=== PATIENT | female | born 1955 | race Caucasian/White ===

== ENCOUNTER 2021-07-12 08:00 | Outpatient (CLI) | payer SELFPAY | END 2021-07-12 23:59 | LOC: LAB.N 08:00 | PROVIDERS: ATTEND Physician Assistant | DX: Z53.9 Procedure and treatment not carried out, unspecified reason (principal) ==

== ENCOUNTER 2022-07-30 15:42 | Emergency (ER) | payer MEDICARE, OTHER ==
[2022-07-30] MEDS ORDERED: IPRATROPIUM/ALBUTEROL 3 ML NEB INH STA (16:03)
--- NOTE | 2022-07-30 16:04 | ED Physician Documentation ---
History of Present Illness - Stated complaint Stated Complaint: WHEEZING - Chief complaint Chief Complaint: Resp - History obtained from History obtained from: Patient - Additonal information Additional information: 67-year-old woman with history of asthma has had a rough winter with regard to her asthma. Several flares. She had her knee replaced 2 weeks ago and over the last week or so has had increased wheezing with a cough productive of green sputum. She is short of breath. She denies fevers or chills. She went to the walk-in clinic and given the temporal proximity to her knee replacements there was a concern for pulmonary embolism and she was sent here for further evaluation and treatment for that. She is been using a albuterol neb at home, not DuoNeb, and is currently on a steroid taper. PD PAST MEDICAL HISTORY - Present Medications Home Medications: Ambulatory Orders Medication Instructions Recorded Confirmed Amoxicillin 2 tab PO TID #30 cap 07/30/22 Citalopram Hydrobromide 40 mg PO DAILY 07/30/22 07/30/22 [Citalopram HBr] Gabapentin [Neurontin] 300 mg PO DAILY 07/30/22 07/30/22 Ipratropium/Albuterol [Duoneb] 3 ml INH Q6H PRN #30 ea 07/30/22 Losartan Potassium [Cozaar] 50 mg PO DAILY 07/30/22 07/30/22 Simvastatin [Zocor] 40 mg PO DAILY 07/30/22 07/30/22 Trazodone HCl 50 mg PO DAILY 07/30/22 07/30/22 Triamterene/Hydrochlorothiazid 1 cap PO DAILY 07/30/22 07/30/22 [Triamterene-Hctz 37.5-25 mg Cp] - Allergies Allergies/Adverse Reactions: Allergies Allergy/AdvReac Type Severity Reaction Status Date / Time No Known Drug Allergies Allergy Verified 07/30/22 15:46 PD ED PE NORMAL - Vitals Vital signs reviewed: Yes - General General: Alert and oriented X 3, No acute distress - HEENT HEENT: PERRL, EOMI - Neck Neck: Supple, no meningeal sign, No bony TTP - Cardiac Cardiac: RRR, No murmur - Respiratory Respiratory: No respiratory distress, Other (Wheezy throughout but good air movement with rhonchi both bases) - Abdomen Abdomen: Non tender - Back Back: No CVA TTP, No spinal TTP - Derm Derm: Normal color, Warm and dry - Extremities Extremities: Other (Right knee incision anteriorly is clean dry and intact without significant swelling or tenderness of the calves) - Neuro Neuro: Alert and oriented X 3, Normal speech Results - Vitals Vitals: Vital Signs - 24 hr 07/30/22 07/30/22 07/30/22 15:46 16:21 16:22 Temperature 36.5 C Heart Rate 54 L 48 L Respiratory 16 16 16 Rate Blood Pressure 160/70 H 186/70 H O2 Saturation 97 97 07/30/22 16:55 Temperature Heart Rate Respiratory 16 Rate Blood Pressure O2 Saturation Oxygen O2 Source Room air - Labs Labs: Laboratory Tests 07/30/22 07/30/22 07/30/22 16:15 16:15 16:15 WBC 13.0 H RBC 4.36 Hgb 11.9 L Hct 38.2 MCV 87.6 MCH 27.3 MCHC 31.2 L RDW 12.7 Plt Count 387 MPV 9.4 Neut # (Auto) 11.3 H Lymph # (Auto) 0.9 L [place] # (Auto) 0.6 Eos # (Auto) 0.0 Baso # (Auto) 0.0 Absolute Nucleated RBC 0.00 Nucleated RBC % 0.0 D-Dimer 747.8 H Sodium 131 L Potassium 4.7 Chloride 94 L Carbon Dioxide 27 Anion Gap 10.0 BUN 44 H Creatinine 1.2 H Estimated GFR (MDRD) 45 L Glucose 399 H Calcium 9.6 - Rads (name of study) CT angio chest, bilateral atelectasis or infiltrate, cholelithiasis, no PE Radiology: Final report received, EMP read indepedently PD Medical Decision Making - ED course ED course: 67-year-old woman presents with shortness of breath in the setting of an asthma exacerbation. Sent here to rule out PE given temporal proximity to a knee replacement. After discussion we decided to do a D-dimer knowing that there was a high chance of it being false positive given her recent surgery. It was positive and subsequently had a CT showing bilateral bibasilar atelectasis or infiltrate without PE. CBC notable for mild leukocytosis, CMP showing mild hyponatremia and decreased renal function. Also hyperglycemia presume related to her steroid use. Feeling better after a DuoNeb here and the respiratory therapist also recommended an Acapella which was administered. Departure - Departure Disposition: Home, Self Care Clinical Impression: Asthma exacerbation Condition: Good Record reviewed to determine appropriate education?: Yes Instructions: Asthma Dc, Pneumonia Dc Prescriptions: Amoxicillin 2 tab PO TID #30 cap Ipratropium/Albuterol [Duoneb] 3 ml INH Q6H PRN #30 ea PRN Reason: Dyspnea Comments: CT scan not showing any blood clots but did show bilateral "atelectasis or pneumonia. I am adding DuoNeb and antibiotic to your current regimen continue the prednisone you are on. Follow-up with your doctor Thursday or Thursday for recheck. Return for new or worsening symptoms. Discharge Date/Time: 07/30/22 17:37
[2022-07-30 16:19] LABS: BASOPHILS % (AUTO) 0.2 %; EOSINOPHILS % (AUTO) 0.2 %; HCT - HEMATOCRIT 38.2 % (37.0-47.0); HGB - HEMOGLOBIN 11.9 g/dL (12.0-16.0); LYMPHOCYTES # (AUTO) 0.9 10^3/uL (1.5-3.5); LYMPHOCYTES % (AUTO) 7.1 %; MEAN CORPUSCULAR HEMOGLOBIN 27.3 pg (27.0-31.0); MEAN CORPUSCULAR HGB CONC 31.2 g/dL (32.0-36.0); MEAN CORPUSCULAR VOLUME 87.6 fL (81.0-99.0); MEAN PLATELET VOLUME 9.4 fL (7.9-10.8); MONOCYTES # (AUTO) 0.6 10^3/uL (0.0-1.0); MONOCYTES % (AUTO) 4.3 %; NEUTROPHILS # (AUTO) 11.3 10^3/uL (1.5-6.6); NEUTROPHILS % (AUTO) 86.2 %; PLT - PLATELET COUNT 387 10^3/uL (130-450); RED BLOOD COUNT 4.36 10^6/uL (4.20-5.40); RED CELL DISTRIBUTION WIDTH 12.7 % (12.0-15.0)
[2022-07-30 16:28] VITALS: BP 186/70
--- OUTSIDE RECORDS SUMMARY | 2022-07-30 16:28 | EXTERNAL MEDICAL SUMMARY RPT | Continuity of Care Document ---
:1955 Author Organization [facility] Address [address] [place] [address] Phone Care Team Providers Name Role Phone Unavailable Unavailable Unavailable Karina Senior Enterprise Architect Enp, Jyotsna Unavailable Unavailable Allergies No information. Encounters No information. Functional Status No information. Immunizations No information. Medications date description facility 2022-07-30 00:00 triamterene-hydrochlorothiazid All 2022-07-30 00:00 simvastatin All 2022-07-30 00:00 triamterene-hydrochlorothiazid All 2022-07-30 00:00 citalopram All 2022-07-30 00:00 simvastatin All 2022-07-30 00:00 gabapentin All 2022-07-30 00:00 triamterene-hydrochlorothiazid All 2022-07-30 00:00 losartan All 2022-07-30 00:00 triamterene-hydrochlorothiazid All 2022-07-30 00:00 simvastatin All 2022-07-30 00:00 losartan All 2022-07-30 00:00 albuterol sulfate All 2022-07-30 00:00 albuterol sulfate All 2022-07-30 00:00 gabapentin All 2022-07-30 00:00 citalopram All 2022-07-30 00:00 citalopram All 2022-07-30 00:00 citalopram All 2022-07-30 00:00 gabapentin All 2022-07-30 00:00 simvastatin All 2022-07-30 00:00 albuterol sulfate All 2022-07-30 00:00 losartan All 2022-07-30 00:00 gabapentin All 2022-07-30 00:00 albuterol sulfate All 2022-07-30 00:00 losartan All Problems date description facility 2022-07-30 00:00 Hypertensive disorder All 2022-07-30 00:00 Unspecified essential hypertension All 2022-07-30 00:00 Essential (primary) hypertension All 2022-07-30 00:00 Wheezing All Procedures date description facility 2022-07-30 00:00 Visit Code Hold All Results/Labs No information. Social History No information. Vital Signs date measurement value units 2022-07-30 00:00 BMI 34.58 kg/m2 2022-07-30 00:00 BP_diastolic 85 mmHg 2022-07-30 00:00 BP_systolic 191 mmHg 2022-07-30 00:00 heart_rate 68 /min 2022-07-30 00:00 height_metric 170.18 cm 2022-07-30 00:00 height_standard 67 in 2022-07-30 00:00 respiration_rate 18 /min 2022-07-30 00:00 temperature_metric 36.78 C 2022-07-30 00:00 temperature_standard 98.2 F 2022-07-30 00:00 weight_metric 99.79 kg 2022-07-30 00:00 weight_standard 220 lb
[2022-07-30 16:30] LABS: CALCIUM 9.6 mg/dL (8.5-10.3); CREATININE 1.2 mg/dL (0.4-1.0); POTASSIUM 4.7 mmol/L (3.5-5.0)
[2022-07-30] MEDS ORDERED: iohexoL-300 100 ML VIAL ONE (16:36)
--- NOTE | 2022-07-30 17:19 | CT Report ---
PROCEDURE: CT angiogram chest with contrast INDICATIONS: Dyspnea, high D-dimer, PE protocol CONTRAST: 80mL Omni 300 TECHNIQUE: After the administration of intravenous contrast, 2 mm axial images were acquired from the pulmonary apices to the posterior costophrenic angles during the arterial phase. In addition, 1 mm lung kernel and 5 mm soft tissue kernel reconstructions were performed. coronal oblique maximum intensity project ion (MIP) reformats, 8 mm axial MIP, and 5 mm coronal and sagittal MPR reformats were then performed through the thorax. For radiation dose reduction, the following was used: automated exposure control, adjustment of mA and/or kV according to patient size. COMPARISON: None FINDINGS: Image quality: Excellent. Pulmonary arteries: Pulmonary arteries are normal in size, and demonstrate no intraluminal filling d efects to suggest central pulmonary embolism. Lungs and pleura: Mild bibasilar atelectasis and or infiltrate present with chronic interstitial ashton ges. No pleural effusions or pneumothorax. Central and peripheral airways are patent. Mediastinum: Heart size is normal, without pericardial effusion. No mediastinal or hilar adenopathy . Thoracic aorta is normal in caliber and enhancement. Esophagus is normal in caliber, without hiat al hernia. Bones and chest wall: No suspicious bony lesions. Ribs and thoracic spine appear intact throughout. No axillary or supraclavicular adenopathy. The thyroid is normal in size and there are no incident al findings. Abdomen: Visualized upper abdominal solid organs appear normal in the early arterial phase of enhanc ement in cholelithiasis. IMPRESSION: No evidence of pulmonary embolism, aortic dissection or aneurysm. Mild chronic interstitial changes with atelectasis and or infiltrate at the lung bases. Incidental partially imaged cholelithiasis without CT evidence of acute cholecystitis Reviewed by: Abdi Keyes MD on 07/30/2022 4:17 PM AKST Approved by: Abdi Keyes MD on 07/30/2022 4:17 PM AKST Station ID: [id number]
[2022-07-30] MEDS ORDERED: iohexoL-300 100 ML VIAL IVP ONE (19:30)
== END 2022-07-30 17:37 | disposition home or self-care (01) ==
LOC: ED 15:42
DX: J45.901 Unspecified asthma with (acute) exacerbation (principal)
CPT/HCPCS: 36415; 71275; 80048; 85025; 85379; 94640; 94664; 99284; Q9967

== ENCOUNTER 2023-04-24 08:00 | Outpatient (CLI) | payer MEDICARE | END 2023-04-24 23:59 | disposition home or self-care (01) | LOC: LAB 08:00 | PROVIDERS: ATTEND Physician Assistant Medical | DX: R30.0 Dysuria (principal) | CPT/HCPCS: 87086 ==

== ENCOUNTER 2023-04-24 08:00 | Outpatient (CLI) | payer MEDICARE | END 2023-04-24 23:59 | disposition home or self-care (01) | LOC: LAB.N 08:00 | PROVIDERS: ATTEND Physician Assistant Medical | DX: R80.9 Proteinuria, unspecified (principal) | CPT/HCPCS: 82962 ==

== ENCOUNTER 2023-10-12 14:15 | Outpatient (CLI) | payer MEDICARE | END 2023-10-12 14:30 | disposition home or self-care (01) | LOC: LAB.N 14:15 | PROVIDERS: ATTEND Physician Assistant Medical | DX: R39.15 Urgency of urination (principal) | CPT/HCPCS: 87086 ==